=== PATIENT | female | born 1995 | race Caucasian/White ===

== ENCOUNTER 2016-11-27 10:09 | Emergency (ER) | payer OTHER ==
[~2016-11-27] VITALS: Ht 152.4 cm; Wt 66.8 kg
[2016-11-27 10:32] VITALS: BP 102/67
--- NOTE | 2016-11-27 10:43 | NUR ---
PATIENT AMBULATED TO BED 6
--- NOTE | 2016-11-27 10:45 | NUR ---
Dr. Browne evaluating patient at bedside.
[2016-11-27] MEDS ORDERED: NACL 0.9% 1,000 ML IV ONE (10:50)
[2016-11-27] MEDS ORDERED: METOCLOPRAMIDE 10 MG/2 ML INJ VIAL IVP ONE (10:50)
--- NOTE | 2016-11-27 10:51 | NUR ---
21/F presents to ED for evaluation of cough and vomiting x2 days. Patient also c/o fever for the past two days. Pt states "My fever was 102 yesterday." Patient also states "I can't keep anything down." Pt denies body aches. Pt also reports being 14 weeks , G-3, P-2. Pt denies any vaginal bleeding. Pt states "I was bleeding last month but I got it checked out and they said the baby was okay." Patient is AOX4, skin warm and dry, normal in color for ethnicity. Afebrile upon arrival. VSS.
[2016-11-27] MEDS ORDERED: ACETAMINOPHEN 325 MG TAB PO ONE (11:10)
--- NOTE | 2016-11-27 11:10 | NUR ---
Patient found crying. Patient crying from chest pain from her cough. Dr. Browne made aware. Orders for medication received.
--- NOTE | 2016-11-27 11:19 | NUR ---
Patient assisted into position of comfort. Bed placed in lowest position. No visible signs of distress noted.
--- NOTE | 2016-11-27 11:48 | NUR ---
Patient ambulated to restroom with steady gait.
--- NOTE | 2016-11-27 12:00 | NUR ---
IV removed, catheter intact and site benign. Applied folded 4x4 gauze and tape to stop bleeding.
[2016-11-27 12:11] VITALS: BP 123/74
--- NOTE | 2016-11-27 12:13 | NUR ---
Patient discharged with v/s stable. Written and verbal after care instructions given and explained. Patient alert, oriented and verbalized understanding of instructions. with . All questions addressed prior to discharge. ID band removed. Patient advised to follow up with PMD. Rx of REGLAN given. Patient educated on indication of medication including possible reaction and side effects. Opportunity to ask questions provided and answered.
--- NOTE | 2016-11-27 12:14 | NUR ---
Chart checked and completed. The patient's care was reviewed and supervised by Andrea Ventura RN.
== END 2016-11-27 12:13 | disposition home or self-care (01) ==
LOC: MED 10:17
DX: O99.511 Diseases of the respiratory system complicating pregnancy, first trimester (principal); O21.9 Vomiting of pregnancy, unspecified; J06.9 Acute upper respiratory infection, unspecified; Z3A.14 14 weeks gestation of pregnancy
CPT/HCPCS: 96361; 96374; 99284; J2765; J7030

== ENCOUNTER 2017-05-25 12:23 | Emergency (ER) | payer OTHER ==
[~2017-05-25] VITALS: Ht 154.9 cm; Wt 71.7 kg
[2017-05-25 12:56] VITALS: BP 129/79
[2017-05-25 13:31] LABS: BASOPHILS # (AUTO) 0.1 K/uL (0.00-0.22); EOSINOPHILS # (AUTO) 0.4 K/uL (0-0.4); EOSINOPHILS % (AUTO) 3.4 % (0.0-4.0); HEMATOCRIT 45.6 % (36-48); HEMOGLOBIN 15.2 g/dL (12.0-16.0); LYMPHOCYTES % (AUTO) 9.9 % (20.5-51.1); MEAN CORPUSCULAR HEMOGLOBIN 28 pg (27-31); MEAN CORPUSCULAR HGB CONC 33 g/dL (33-37); MEAN CORPUSCULAR VOLUME 83 fL (80-94); MONOCYTES # (AUTO) 0.2 K/uL (0.8-1.0); MONOCYTES % (AUTO) 1.5 % (1.7-9.3); NEUTROPHILS # (AUTO) 8.9 K/uL (1.8-7.7); NEUTROPHILS % (AUTO) 84.2 % (42.2-75.2); PLATELET COUNT (AUTO) 276 K/uL (140-450); RED BLOOD CELL COUNT(AUTO) 5.53 MIL/uL (4.20-5.40); RED CELL DISTRIBUTION WIDTH 15.9 % (11.6-13.7)
[2017-05-25 13:40] LABS: ANION GAP 13.8 (8-16); CALCIUM 9.9 mg/dL (8.5-10.1); CARBON DIOXIDE 27.7 mmol/L (21-32); CREATININE 0.8 mg/dL (0.6-1.3); POTASSIUM 4.5 mmol/L (3.5-5.1)
[2017-05-25 13:42] LABS: WHITE BLOOD COUNT (AUTO) 10.6 K/uL (4.8-10.8)
[2017-05-25 13:46] LABS: ALBUMIN 4.1 g/dL (3.4-5.0); TOTAL PROTEIN, SERUM 8.5 g/dL (6.4-8.2)
--- NOTE | 2017-05-25 14:34 | NUR ---
Patient ambulated to bed 4. RN evaluating patient at bedside.
--- NOTE | 2017-05-25 14:45 | NUR ---
PATIENT PRESENTS TO ED WITH C/O ABDOMINAL PAIN X 2 DAYS WITH N/V/D; C SECTION 2 WKS AGO TAKING STOOL SOFTENER;RX OF IBUPROFEN, STOOL SOFTENER.PT STATES SHE HAS N/V/D; SKIN IS PINK/WARM/DRY; AAOX4 WITH EVEN AND STEADY GAIT; LUNGS CLEAR BL; HR EVEN AND REGULAR; PT DENIES ANY FEVER, CP, SOB, OR COUGH AT THIS TIME; PATIENT STATES PAIN OF 6/10 AT THIS TIME; PATIENT POSITIONED FOR COMFORT; HOB ELEVATED; BEDRAILS UP X2; BED DOWN. ALL MONITORS IN PLACED;ER MD MADE AWARE OF PT STATUS.
--- NOTE | 2017-05-25 14:59 | NUR ---
DR BUSCH AT BEDSIDE.
[2017-05-25 15:46] VITALS: BP 111/67
--- NOTE | 2017-05-25 15:46 | NUR ---
Patient discharged with v/s stable. Written and verbal after care instructions given and explained. Patient alert, oriented and verbalized understanding of instructions. Ambulatory with steady gait. All questions addressed prior to discharge. ID band removed. Patient advised to follow up with PMD. Rx of ZOFRAN AND MOTRIN given. Patient educated on indication of medication including possible reaction and side effects. Opportunity to ask questions provided and answered.
== END 2017-05-25 15:46 | disposition home or self-care (01) ==
LOC: MED 12:26
DX: R19.7 Diarrhea, unspecified (principal); R11.2 Nausea with vomiting, unspecified
CPT/HCPCS: 36415; 76705; 80053; 81025; 83690; 85025; 99285

== ENCOUNTER 2018-08-16 12:12 | Emergency (ER) | payer OTHER ==
[~2018-08-16] VITALS: Ht 152.4 cm; Wt 68.0 kg
[2018-08-16 12:16] VITALS: BP 127/50
[2018-08-16 13:22] VITALS: BP 127/50
== END 2018-08-16 13:22 | disposition home or self-care (01) ==
LOC: MED 12:12
DX: S90.121A Contusion of right lesser toe(s) without damage to nail, initial encounter (principal); W01.0XXA Fall on same level from slipping, tripping and stumbling without subsequent striking against object, initial encounter; Y93.89 Activity, other specified; Y92.34 Swimming pool (public) as the place of occurrence of the external cause; Y99.8 Other external cause status
CPT/HCPCS: 73660; 99284; Q0092